=== PATIENT | male | born 1985 | race Two or more races ===

== ENCOUNTER 2019-12-07 10:18 | Outpatient (CLI) | payer OTHER ==
[~2019-12-07 10:18] MED LIST: CEFADROXIL500 MG PO
== END 2019-12-07 10:27 | disposition home or self-care (01) ==
LOC: LAB 10:18
PROVIDERS: ATTEND General Practice
DX: J11.1 Influenza due to unidentified influenza virus with other respiratory manifestations (principal); Z20.828 Contact with and (suspected) exposure to other viral communicable diseases; R51 Headache; R53.81 Other malaise; Z11.59 Encounter for screening for other viral diseases

== ENCOUNTER 2020-03-06 08:27 | Emergency (ER) | payer OTHER ==
[~2020-03-06] VITALS: Ht 177.8 cm; Wt 97.5 kg
[2020-03-06] MEDS ORDERED: ALLEGRA ALLERGY60 MG (08:52)
== END 2020-03-06 13:51 | disposition home or self-care (01) ==
LOC: ER
DX: B34.9 Viral infection, unspecified (principal); Z03.818 Encounter for observation for suspected exposure to other biological agents ruled out; R19.7 Diarrhea, unspecified

== ENCOUNTER 2023-02-15 19:28 | Emergency (ER) | payer OTHER ==
[~2023-02-15] VITALS: Ht 177.8 cm; Wt 96.2 kg
[~2023-02-15 19:28] MED LIST changes: +ALLEGRA ALLERGY60 MG
[2023-02-15 21:00] LABS: HEMOGLOBIN 16.3 g/dL (13-16.00); MEAN CELL VOLUME 87.3 fL (80.0-100.00); MEAN CORPUSCULAR HEMOGLOBIN 30.3 pg (27.00-32.0); MEAN CORPUSCULAR HGB CONC 34.7 g/dl (32.0-36.0); PLATELET COUNT 266 K/uL (150-450); RED BLOOD COUNT 5.38 M/uL (4.00-6.00); RED CELL DISTRIBUTION WIDTH 13.4 % (11.5-14.5)
[2023-02-15 21:14] LABS: CALCIUM 9.3 mg/dL (8.5-10.1); CREATININE SERUM 1.01 mg/dL (0.70-1.30); GFR 83.12; POTASSIUM 3.94 mEq/L (3.5-5.1)
== END 2023-02-15 22:36 | disposition home or self-care (01) ==
LOC: ER
PROVIDERS: General Practice
DX: R07.89 Other chest pain (principal)

== ENCOUNTER 2023-12-01 19:32 | Emergency (ER) | payer OTHER ==
[~2023-12-01] VITALS: Ht 177.8 cm; Wt 88.0 kg
[2023-12-01] MEDS ORDERED: PEPCID AC20 MG (20:27)
[2023-12-01] MEDS ORDERED: KETOROLAC TROMETHAMINE 30 MG VIAL IM STA (21:25)
== END 2023-12-01 22:44 | disposition home or self-care (01) ==
LOC: ER 19:33
DX: M25.531 Pain in right wrist (principal); W10.0XXA Fall (on)(from) escalator, initial encounter; Y93.89 Activity, other specified; Y92.018 Other place in single-family (private) house as the place of occurrence of the external cause
CPT/HCPCS: 73110; 96372; 99283; J1885